=== PATIENT | female | born 1990 | race Caucasian/White ===

== ENCOUNTER 2024-03-18 02:25 | Emergency (ER) | payer MEDICAID, SELFPAY ==
[2024-03-18 02:32] VITALS: BP 147/91; PULSE 80; RESP 16; TEMP 37.1; O2SAT 99; BMI 35.6
[2024-03-18 03:16] LABS: Basophils % 0.4 %; Eosinophils # 0.1 10^3/uL (0.0-0.8); Eosinophils % 1.1 %; Hematocrit 38.8 % (36-47); Lymphocytes # 2.2 10^3/uL (0.8-4.8); Lymphocytes % 26.5 %; Mean Corpuscular HGB Conc 32.7 g/dL (30-55); Mean Corpuscular Hemoglobin 29.6 pg (27-33); Mean Corpuscular Volume 90.4 fl (85-98); Mean Platelet Volume 9.6 fL (7.4-10.4); Monocytes # 0.7 10^3/uL (0.2-0.9); Monocytes % 7.9 %; Neutrophils # 5.37 10^3/uL (1.8-7.7); Neutrophils % 63.9 %; Nucleated Red Blood Cells % 0 %; Platelet Count 191 10^3/cmm (157-399); Red Blood Count 4.29 10^6/uL (3.85-5.65); Red Cell Distribution Width 12.5 % (12.1-15.1); White Blood Count 8.39 10^3/uL (3.29-11.43)
--- NOTE | 2024-03-18 03:18 | USR_ITS ---
PROCEDURE INFORMATION: Exam: US First Trimester, Transabdominal and US , Transvaginal Exam date and time: 03/18/2024 3:38 AM Age: 33 years old Clinical indication: complicated by abdominal or pelvic pain; Generalized abdominal pain; First trimester (<14 weeks 0 days); Gestational age or lmp: 6w 2d by lmp; ; Patient HX: G2-p1-a0-l1. No vaginal bleeding. ; Additional info: Cramping, abdominal pain, approximately 6 weeks LABS AND CLINICAL REPORTS: Choriogonadotropin in serum (Serum HCG): 91516 mIU/mL Last menstrual period start date: 02/03/2024 Gestational age (Established): 6 w 2 d Estimated due date (Established): 11/09/2024 TECHNIQUE: Imaging protocol: Real-time transabdominal obstetrical ultrasound of the maternal pelvis and a first trimester , less than 14 weeks 0 days, with image documentation. Transvaginal imaging was used for better evaluation of the fetus, adnexa, and/or cervix. COMPARISON: No relevant prior studies available. FINDINGS: GESTATION: Gestation: Intrauterine gestation is visualized. pole is visualized. Yolk sac is visualized. Embryonic/ heart rate: 111 bpm Extra-embryonic membranes/Placenta: Unremarkable. No subchorionic bleed. Amniotic/Chorionic fluid: Amniotic and extra-amniotic fluid are normal for gestational age. BIOMETRY: Gestational age (AUA): 6 w 3 d Estimated due date (AUA): 11/08/2024 [place] rump length (CRL): 6.2 mm. EGA (CRL) is 6 w 3 d MATERNAL: Uterus: Uterus measures 4.17 cm x 6.12 cm x 5.46 cm. Cervix: Unremarkable. Endocervical canal is closed. Right ovary/adnexa: Right ovary measures 3.5 cm x 2.3 cm x 2.8 cm. Right ovarian volume is 9 mL. Right ovarian corpus luteal cyst. Left ovary/adnexa: Left ovary measures 2.9 cm x 1.8 cm x 3.4 cm. Left ovarian volume is 9 mL. Intraperitoneal space: No intraperitoneal free fluid. US/US OB <= 14 weeks fetus [id number] IMPRESSION: Live intrauterine is noted with gestational age of 6 weeks and 3 days.
[2024-03-18 03:23] VITALS: BP 129/85; PULSE 97; O2SAT 99
--- NOTE | 2024-03-18 03:25 | ED_ITS ---
HPI - Dizziness 2 General: Chief Complaint: Dizziness Stated Complaint: 6 weeks preg, Light headed, Cramping History of Present Illness: HPI Narrative: 33-year-old female who is approximately 6 weeks who presents emergency room with pelvic cramping and she says cervix pain. She said it suddenly and she felt kind of dizzy. She has already had an ultrasound as she had some left flank pain and they had done the ultrasound to rule out an ectopic . No vaginal bleeding. No vaginal discharge. No fevers. Related Data Previous Rx's Medication Instructions Recorded cephalexin 500 mg capsule 500 mg PO BID 5 days #10 caps 03/18/24 Allergies Allergy/AdvReac Type Severity Reaction Status Date / Time Penicillins Allergy ALGY-Rash Verified 03/18/24 02:36 Review of Systems 2 Narrative: Constitutional symptoms: Negative except as documented in HPI. Skin symptoms: Negative except as documented in HPI. Eye symptoms: Negative except as documented in HPI. ENMT symptoms: Negative except as documented in HPI. Respiratory symptoms: Negative except as documented in HPI. Cardiovascular symptoms: Negative except as documented in HPI. Gastrointestinal symptoms: Negative except as documented in HPI. Genitourinary symptoms: Negative except as documented in HPI. Musculoskeletal symptoms: Negative except as documented in HPI. Neurologic symptoms: Negative except as documented in HPI. Psychiatric symptoms: Negative except as documented in HPI. Endocrine symptoms: Negative except as documented in HPI. [facility] ED 2 Female Reproductive History: Date of last menstrual period: 02/03/24 Physical Exam 2 Narrative: EXAM NARRATIVE: General: Alert, no acute distress. Skin: Warm, dry. Head: Normocephalic, atraumatic. Neck: Supple, trachea midline. Eye: Extraocular movements are intact. Ears, nose, mouth and throat: mucosa moist. Cardiovascular: Regular, Normal peripheral perfusion. Respiratory: Lungs are clear to auscultation, respirations are non-labored, breath sounds are equal, Symmetrical chest wall expansion. Gastrointestinal: Soft, Nontender, Non distended Musculoskeletal: Normal ROM, no deformity. Neurological: Alert and oriented, No focal neurological deficit observed. Psychiatric: Cooperative, appropriate mood & affect. Course 2 Vital Signs: Vital signs: Vital Signs Temperature 98.8 F 03/18/24 02:32 Pulse Rate 78 03/18/24 04:49 Respiratory Rate 16 03/18/24 02:32 Blood Pressure 135/83 03/18/24 04:49 Pulse Oximetry 98 03/18/24 04:38 Oxygen Delivery Me thod Room Air 03/18/24 02:32 MDM - Dizziness Medical Decision Making Lab Review: Laboratory results were reviewed and interpreted by myself the emergency room physician. No leukocytosis. No anemia. No renal failure. hCG is appropriate. Urinalysis is positive for an infection. Ultrasound of the pelvis: Live intrauterine noted with a gestational age of 6 weeks and 3 days. This was reviewed and interpreted by myself the emergency room physician. I also reviewed the radiology report. I reviewed the patient's medical record. Reexamination: Patient remained stable. No increased work of breathing. No altered mental status. No focal motor deficits. Assessment and plan: Urinary tract infection Early -IM Dionin in the emergency room - Discharged home - Discussed plan with patient. Answered any questions. - Evaluation and treatment of this problem were appropriate in the emergency setting. Lab Data 03/18/24 03:08 03/18/24 03:08 Radiology Impressions Ultrasound 03/18/24 03:18 IMPRESSION: Live intrauterine is noted with gestational age of 6 weeks and 3 days. Laboratory Results WBC 8.39 10^3/uL (3.29-11.43) 03/18/24 03:08 RBC 4.29 10^6/uL (3.85-5.65) 03/18/24 03:08 Hgb 12.70 g/dL (11.27-16.99) 03/18/24 03:08 Hct 38.8 % (36-47) 03/18/24 03:08 MCV 90.4 fl (85-98) 03/18/24 03:08 MCH 29.6 pg (27-33) 03/18/24 03:08 MCHC 32.7 g/dL (30-55) 03/18/24 03:08 RDW 12.5 % (12.1-15.1) 03/18/24 03:08 Plt Count 191 10^3/cmm (157-399) 03/18/24 03:08 MPV 9.6 fL (7.4-10.4) 03/18/24 03:08 Neut % (Auto) 63.9 % 03/18/24 03:08 Lymph % (Auto) 26.5 % 03/18/24 03:08 [place] % (Auto) 7.9 % 03/18/24 03:08 Eos % (Auto) 1.1 % 03/18/24 03:08 Baso % (Auto) 0.4 % 03/18/24 03:08 Neut # (Auto) 5.37 10^3/uL (1.8-7.7) 03/18/24 03:08 Lymph # (Auto) 2.2 10^3/uL (0.8-4.8) 03/18/24 03:08 [place] # (Auto) 0.7 10^3/uL (0.2-0.9) 03/18/24 03:08 Eos # (Auto) 0.1 10^3/uL (0.0-0.8) 03/18/24 03:08 Baso # (Auto) 0.0 10^3/uL (0.0-0.1) 03/18/24 03:08 Nucleated RBC % (auto) 0 % 03/18/24 03:08 Nucleated RBCs # 0.0 /100WBC 03/18/24 03:08 Sodium 138 mmol/L (136-145) 03/18/24 03:08 Potassium 4.0 mmol/L (3.5-5.1) 03/18/24 03:08 Chloride 104 mmol/L (98-107) 03/18/24 03:08 Carbon Dioxide 22 mmol/L (22-29) 03/18/24 03:08 Anion Gap 16.0 (5-19) 03/18/24 03:08 BUN 10 mg/dL (6-20) 03/18/24 03:08 Creatinine 0.7 mg/dL (0.5-0.9) 03/18/24 03:08 GFR Calculation 96.4 mL/min (90-130) 03/18/24 03:08 Glucose 91 mg/dL (65-115) 03/18/24 03:08 Calculated Osmolality 285 mOsm/kg (285-295) 03/18/24 03:08 Calcium 8.5 mg/dL (8.5-10.5) 03/18/24 03:08 Total Bilirubin 0.2 mg/dL (0.15-1.2) 03/18/24 03:08 AST 11 U/L (0-32) 03/18/24 03:08 ALT 12 U/L (0-33) 03/18/24 03:08 Alkaline Phosphatase 67 U/L (35-105) 03/18/24 03:08 Total Protein 6.7 g/dL (6.6-8.7) 03/18/24 03:08 Albumin 4.0 g/dL (3.5-5.2) 03/18/24 03:08 Globulin 2.7 g/dL (1.3-4.6) 03/18/24 03:08 Ser , Semi-Qnt 13721.00 mIU/mL 03/18/24 03:08 Urine Color Yellow (Yellow) 03/18/24 03:12 Urine Appearance Cloudy (CLEAR) A 03/18/24 03:12 Urine pH 7.0 (5-7) 03/18/24 03:12 Ur Specific [place] 1.012 (1.005-1.030) 03/18/24 03:12 Urine Protein Negative (Negative) 03/18/24 03:12 Urine Glucose (UA) Negative (Normal) 03/18/24 03:12 Urine Ketones Trace (Negative) 03/18/24 03:12 Urine Blood Negative (Negative) 03/18/24 03:12 Urine Nitrate Negative (Negative) 03/18/24 03:12 Urine Bilirubin Negative (Negative) 03/18/24 03:12 Urine Urobilinogen 1.0 mg/dL (Negative) 03/18/24 03:12 Ur Leukocyte Esterase Trace (Negative) A 03/18/24 03:12 Urine RBC 0-2 /hpf (0-2) 03/18/24 03:12 Urine WBC 6-10 /hpf (0-5) 03/18/24 03:12 Ur Squamous Epith Cells 0-5 /hpf (0-5) 03/18/24 03:12 Amorphous Sediment Not Reportable 03/18/24 03:12 Urine Bacteria Trace /hpf (NONE) 03/18/24 03:12 Hyaline Casts 0.40 /lpf 03/18/24 03:12 All radiology interpretation(s) finalized by discharge Discharge Plan Discharge Patient Disposition: Home Clinical Impression: Urinary tract infection, at early stage Condition: Stable Prescriptions: New cephalexin 500 mg capsule 500 mg PO BID 5 Days Qty: 10 0RF Discharge Orders: Discharge ED (Routine); Ordered 03/18/24 Ordered By: Jocelynn Mckeon Referrals: Amado Armando FNP [Family Provider] - Discharge Diet: Usual diet Discharge Activity: Increase activity as tolerated Patient Instructions: Urinary Tract Infection in (ED) Activity Restrictions/Additional Instructions: Thank you for choosing [facility] for your healthcare needs today. Please realize this is an emergency room and that we are providing you with a medical screening exam and this may not be complete and all inclusive of all the testing and or work up that you may need to determine your ailment or severity of your illness. You have been screened and evaluated and felt safe for discharge. Health conditions do change or evolve sometimes and as such it is important that you follow up with your Primary Doctor to be re checked, 3-5 days is a general good time frame for follow up. You are always welcome to return to the ED for re assessment if your symptoms are worsening or you have new concerns Coding Level of Care Code ED Medical Parasitologist for Tea Ventura
[2024-03-18 03:26] LABS: Bilirubin Urine Negative (Negative); Blood Urine Negative (Negative); Glucose Urine UA Negative (Normal); Ketones Urine Trace (Negative); Leukocyte Esterase Urine Trace (Negative); Nitrate Urine Negative (Negative); Protein Urine Negative (Negative); Specific Gravity, Urine 1.012 (1.005-1.030); Urine Appearance Cloudy (CLEAR); Urine Color Yellow (Yellow)
[2024-03-18 03:28] LABS: Bacteria Urine Trace /hpf; RBC Urine 0-2 /hpf (0-2); Squamous Epithelial Cell Urine 0-5 /hpf (0-5)
[2024-03-18 03:30] VITALS: BP 128/85; PULSE 79; O2SAT 99
[2024-03-18 03:33] LABS: Alanine Aminotransferase 12 U/L (0-33); Alkaline Phosphatase 67 U/L (35-105); Aspartate Amino Transferase 11 U/L (0-32); Blood Urea Nitrogen 10 mg/dL (6-20); Calcium 8.5 mg/dL (8.5-10.5); Carbon Dioxide 22 mmol/L (22-29); Chloride 104 mmol/L (98-107); Creatinine Clr Calc Pharmacy 127.3278; Globulin 2.7 g/dL (1.3-4.6); Glomerular Filtration Rate 96.4 mL/min (90-130); Glucose 91 mg/dL (65-115); Osmolality Calculated 285 mOsm/kg (285-295); Sodium 138 mmol/L (136-145); Total Bilirubin 0.2 mg/dL (0.15-1.2); Total Protein 6.7 g/dL (6.6-8.7)
[2024-03-18] MEDS: cefTRIAXone 1,000 MG in water for injection-sterile 2.1 ML 2.1 MG IM (04:18)
[2024-03-18 04:38] VITALS: BP 148/87; PULSE 76; O2SAT 98
[2024-03-18 04:49] VITALS: BP 135/83; PULSE 78
== END 2024-03-18 04:55 | disposition home or self-care (01) ==
PROVIDERS: Emergency Provider Emergency Medicine; Family Provider Nurse Practitioner Family
DX: O23.41 Unspecified infection of urinary tract in pregnancy, first trimester (principal); N39.0 Urinary tract infection, site not specified; Z3A.01 Less than 8 weeks gestation of pregnancy
CPT/HCPCS: 36415; 76801; 80053; 81001; 84702; 85025; 96372; 99284; J0696

== ENCOUNTER 2024-05-29 20:19 | Emergency (ER) | payer MEDICAID, SELFPAY ==
[2024-05-29 20:24] VITALS: BP 138/95; PULSE 88; RESP 16; TEMP 36.7; O2SAT 97; BMI 36.1
[2024-05-29 22:15] VITALS: BP 148/92; PULSE 92; RESP 16; O2SAT 100
[2024-05-29 22:15] LABS: Basophils % 0.3 %; Eosinophils # 0.1 10^3/uL (0.0-0.8); Eosinophils % 0.9 %; Hematocrit 39.6 % (36-47); Lymphocytes # 2.6 10^3/uL (0.8-4.8); Lymphocytes % 24.1 %; Mean Corpuscular HGB Conc 33.6 g/dL (30-55); Mean Corpuscular Hemoglobin 29.8 pg (27-33); Mean Corpuscular Volume 88.8 fl (85-98); Mean Platelet Volume 9.9 fL (7.4-10.4); Monocytes # 0.7 10^3/uL (0.2-0.9); Neutrophils # 7.11 10^3/uL (1.8-7.7); Neutrophils % 67.2 %; Nucleated Red Blood Cells % 0 %; Platelet Count 236 10^3/cmm (157-399); Red Blood Count 4.46 10^6/uL (3.85-5.65); Red Cell Distribution Width 12.5 % (12.1-15.1); White Blood Count 10.57 10^3/uL (3.29-11.43)
--- NOTE | 2024-05-29 22:15 | ED_ITS ---
Documented by User: BRIANA Cuello 05/29/24 22:46 HPI - 2 General: Chief complaint: OB/Uterine Contractions Stated complaint: 17 weeks preg/cramping Time Seen by Provider: 05/29/24 22:11 History of Present Illness: 33-year-old female comes in today for co mplaints of contractions and right upper quadrant abdominal discomfort. Patient also has some pelvic pressure. Patient's last menstrual cycle was on February 02. Patient is 2 para 1. Patient does have a history of high blood pressure and preeclampsia. Patient does see Dr. Cowan for her LABORATORY DEVELOPMENT TECHNICIAN at [facility]. Patient denies any other chronic medical problems. Patient reports she had some contractions tonight along with some left upper abdominal discomfort. Patient reports contractions and pain is resolved since being in the waiting room. Associated symptoms: Reports abdominal pain Related Data Allergies Allergy/AdvReac Type Severity Reaction Status Date / Time Penicillins Allergy ALGY-Rash Verified 03/18/24 02:36 Review of Systems 2 General: Reports: 10 or more systems reviewed and unremarkable except in HPI and below GI: Reports: abdominal pain Physical Exam 2 Const: COMMON NORMALS: alert HENMT: COMMON NORMALS: normocephalic HEAD & SCALP: normocephalic Neck/C-Spine: COMMON NORMALS: full ROM Chest: COMMONS NORMALS: normal inspection of the chest Resp: COMMON NORMALS: normal respiratory effort Cardio: COMMON NORMALS: regular rhythm RATE: tachycardic RHYTHM: regular rhythm GI: COMMON NORMALS: Soft to palpation PALPATION: Yes Soft to palpation : COMMON NORMALS: Yes no CVA tenderness BLADDER/KIDNEY EXAM: Yes no CVA tenderness Back/Pelvis: COMMON NORMALS: no CVA tenderness Extremity: COMMON NORMALS: normal to inspection Neuro: SENSORIUM/ORIENTATION: Yes alert Skin: COMMON NORMALS: turgor normal GENERAL SKIN EXAM: turgor normal Course 2 Vital Signs: Vital signs: Vital Signs Temperature 98.1 F 05/29/24 20:24 Pulse Rate 89 05/29/24 22:50 Respiratory Rate 16 05/29/24 22:15 Blood Pressure 148/91 05/29/24 22:50 Pulse Oximetry 98 05/29/24 22:50 Oxygen Delivery Me thod Room Air 05/29/24 22:15 MDM - OB/Uterine Contractions Medical Decision Making 33-year-old female comes in today with complaints of some contractions and left upper abdominal pain. Patient reports pain started this evening but has resolved since arrival to the ER. On exam patient appears nontoxic. I requested Dr. Gonzalez who graciously performed a bedside ultrasound and noted a good heart movement with rate in the 140s, and a BPD age estimate of age at 17 weeks and 6 days. Differential diagnosis includes not limited to gastritis, Concordia Rodriguez contractions, round ligament pain, urinary tract infections. CBC CMP was unremarkable. Urinalysis was a poor catch with lots of skin cells. Reviewed the exam with patient with recommendation for follow-up with LABORATORY DEVELOPMENT TECHNICIAN's office in the morning for reevaluation of elevated blood pressure and consideration of treatment. Patient reports understanding agreed to plan. Lab Data 05/29/24 22:05 05/29/24 22: Laboratory Results WBC 10.57 10^3/uL (3.29-11.43) 05/29/24 22: RBC 4.46 10^6/uL (3.85-5.65) 05/29/24 22:05 Hgb 13.30 g/dL (11.27-16.99) 05/29/24 22:05 Hct 39.6 % (36-47) 05/29/24: MCV 88.8 fl (85-98) 05/29/24 22:05 MCH 29.8 pg (27-33) 05/29/24 22:05 MCHC 33.6 g/dL (30-55) 05/29/24 22:05 RDW 12.5 % (12.1-15.1) 05/29/24 22:05 Plt Count 236 10^3/cmm (157-399) 05/29/24 22:05 MPV 9.9 fL (7.4-10.4) 05/29/24 22:05 Neut % (Auto) 67.2 % 05/29/24: Lymph % (Auto) 24.1 % 05/29/24 22:05 [place] % (Auto) 7.0 % 05/29/24 22: Eos % (Auto) 0.9 % 05/29/24 22:05 Baso % (Auto) 0.3 % 05/29/24:05 Neut # (Auto) 7.11 10^3/uL (1.8-7.7) 05/29/24 22:05 Lymph # (Auto) 2.6 10^3/uL (0.8-4.8) 05/29/24 22:05 [place] # (Auto) 0.7 10^3/uL (0.2-0.9) 05/29/24 22:05 Eos # (Auto) 0.1 10^3/uL (0.0-0.8) 05/29/24 22:05 Baso # (Auto) 0.0 10^3/uL (0.0-0.1) 05/29/24 22:05 Nucleated RBC % (auto) 0 % 05/29/24 22:05 Nucleated RBCs # 0.0 /100WBC 05/29/24 22:05 Sodium 135 mmol/L (136-145) L 05/29/24 22:05 Potassium 3.8 mmol/L (3.5-5.1) 05/29/24 22:05 Chloride 101 mmol/L (98-107) 05/29/24 22:05 Carbon Dioxide 24 mmol/L (22-29) 05/29/24 22:05 Anion Gap 13.8 (5-19) 05/29/24 22:05 BUN 10 mg/dL (6-20) 05/29/24 22:05 Creatinine 0.6 mg/dL (0.5-0.9) 05/29/24 22:05 GFR Calculation 115.1 mL/min (90-130) 05/29/24 22:05 Glucose 88 mg/dL (65-115) 05/29/24 22:05 Calculated Osmolality 278 mOsm/kg (285-295) L 05/29/24 22:05 Calcium 9.1 mg/dL (8.5-10.5) 05/29/24 22:05 Total Bilirubin 0.2 mg/dL (0.15-1.2) 05/29/24 22:05 AST 12 U/L (0-32) 05/29/24 22:05 ALT 11 U/L (0-33) 05/29/24 22:05 Alkaline Phosphatase 69 U/L (35-105) 05/29/24 22:05 Total Protein 7.3 g/dL (6.6-8.7) 05/29/24 22:05 Albumin 4.1 g/dL (3.5-5.2) 05/29/24 22:05 Globulin 3.2 g/dL (1.3-4.6) 05/29/24 22:05 Lipase 29 U/L (13-60) 05/29/24 22:05 Urine Color Yellow (Yellow) 05/29/24 22:00 Urine Appearance Cloudy (CLEAR) A 05/29/24 22:00 Urine pH 5.5 (5-7) 05/29/24 22:00 Ur Specific [place] 1.032 (1.005-1.030) H 05/29/24 22:00 Urine Protein Trace (Negative) A 05/29/24 22:00 Urine Glucose (UA) Negative (Normal) 05/29/24 22:00 Urine Ketones Trace (Negative) 05/29/24 22:00 Urine Blood Negative (Negative) 05/29/24 22:00 Urine Nitrate Negative (Negative) 05/29/24 22:00 Urine Bilirubin Negative (Negative) 05/29/24 22:00 Urine Urobilinogen 1.0 mg/dL (Negative) 05/29/24 22:00 Ur Leukocyte Esterase Negative (Negative) 05/29/24 22:00 Urine RBC 0-4 /hpf (0-2) H 05/29/24 22:00 Urine WBC 10-15 /hpf (0-5) H 05/29/24 22:00 Ur Squamous Epith Cells 25-40 /hpf (0-5) H 05/29/24 22:00 Calcium Oxalate Crystal 25-40 /hpf H 05/29/24 22:00 Amorphous Sediment Not Reportable 05/29/24 22:00 Urine Bacteria 2+ /hpf (NONE) H 05/29/24 22:00 Urine Mucus 2+ /hpf 05/29/24 22:00 No radiology studies performed this visit Discharge Plan Discharge Patient Disposition: Home Clinical Impression: Abdominal pain during Qualifiers: Trimester: second trimester Qualified Code(s): O26.892 - Other specified related conditions, second trimester Condition: Stable Discharge Orders: Discharge ED (Routine); Ordered 05/29/24 Ordered By: Long Ledezma Referrals: Paulo Pham MD [Primary Care Provider] - Discharge Diet: Usual diet Discharge Activity: Increase activity as tolerated Patient Instructions: Abdominal Pain (ED) Activity Restrictions/Additional Instructions: Drink plenty of water and fluid. Use acetaminophen to help with pain. Follow- up with LABORATORY DEVELOPMENT TECHNICIAN's office in the morning. Return to ER for worsening symptoms such as inability to hold fluids down, high fever greater than 101, vaginal bleeding or vaginal leakage of fluids. Coding Level of Care Code ED Cold Working Supervisor for Chg Fwd Documented by User: Joey Gonzalez DO 05/30/24 02:16 HPI - 2 General: Chief complaint: OB/Uterine Contractions Stated complaint: 17 weeks preg/cramping Time Seen by Provider: 05/29/24 22:11 Related Data Allergies Allergy/AdvReac Type Severity Reaction Status Date / Time Penicillins Allergy ALGY-Rash Verified 03/18/24 02:36 Course 2 Vital Signs: Vital signs: Vital Signs Temperature 98.1 F 05/29/24 20:24 Pulse Rate 89 05/29/24 22:50 Respiratory Rate 16 05/29/24 22:15 Blood Pressure 148/91 05/29/24 22:50 Pulse Oximetry 98 05/29/24 22:50 Oxygen Delivery Me thod Room Air 05/29/24 22:15 MDM - OB/Uterine Contractions Medical Decision Making 33-year-old female comes in today with complaints of some contractions and left upper abdominal pain. Patient reports pain started this evening but has resolved since arrival to the ER. On exam patient appears nontoxic. I requested Dr. Gonzalez who graciously performed a bedside ultrasound and noted a good heart movement with rate in the 140s, and a BPD age estimate of age at 17 weeks and 6 days. Differential diagnosis includes not limited to gastritis, Concordia Rodriguez contractions, round ligament pain, urinary tract infections. CBC CMP was unremarkable. Urinalysis was a poor catch with lots of skin cells. Reviewed the exam with patient with recommendation for follow-up with LABORATORY DEVELOPMENT TECHNICIAN's office in the morning for reevaluation of elevated blood pressure and consideration of treatment. Patient reports understanding agreed to plan. This patient was originally seen by BRIANA Guardado.? I agree with his history, evaluation, and treatment. Lab Data 05/29/24 22:05 05/29/24 22:05 Laboratory Results WBC 10.57 10^3/uL (3.29-11.43) 05/29/24 22:05 RBC 4.46 10^6/uL (3.85-5.65) 05/29/24 22:05 Hgb 13.30 g/dL (11.27-16.99) 05/29/24 22:05 Hct 39.6 % (36-47) 05/29/24 22:05 MCV 88.8 fl (85-98) 05/29/24 22:05 MCH 29.8 pg (27-33) 05/29/24 22:05 MCHC 33.6 g/dL (30-55) 05/29/24 22:05 RDW 12.5 % (12.1-15.1) 05/29/24 22:05 Plt Count 236 10^3/cmm (157-399) 05/29/24 22:05 MPV 9.9 fL (7.4-10.4) 05/29/24 22:05 Neut % (Auto) 67.2 % 05/29/24 22:05 Lymph % (Auto) 24.1 % 05/29/24 22:05 [place] % (Auto) 7.0 % 05/29/24 22:05 Eos % (Auto) 0.9 % 05/29/24 22:05 Baso % (Auto) 0.3 % 05/29/24 22:05 Neut # (Auto) 7.11 10^3/uL (1.8-7.7) 05/29/24 22:05 Lymph # (Auto) 2.6 10^3/uL (0.8-4.8) 05/29/24 22:05 [place] # (Auto) 0.7 10^3/uL (0.2-0.9) 05/29/24 22:05 Eos # (Auto) 0.1 10^3/uL (0.0-0.8) 05/29/24 22:05 Baso # (Auto) 0.0 10^3/uL (0.0-0.1) 05/29/24 22:05 Nucleated RBC % (auto) 0 % 05/29/24 22:05 Nucleated RBCs # 0.0 /100WBC 05/29/24 22:05 Sodium 135 mmol/L (136-145) L 05/29/24 22:05 Potassium 3.8 mmol/L (3.5-5.1) 05/29/24 22:05 Chloride 101 mmol/L (98-107) 05/29/24 22:05 Carbon Dioxide 24 mmol/L (22-29) 05/29/24 22:05 Anion Gap 13.8 (5-19) 05/29/24 22:05 BUN 10 mg/dL (6-20) 05/29/24 22:05 Creatinine 0.6 mg/dL (0.5-0.9) 05/29/24 22:05 GFR Calculation 115.1 mL/min (90-130) 05/29/24 22:05 Glucose 88 mg/dL (65-115) 05/29/24 22:05 Calculated Osmolality 278 mOsm/kg (285-295) L 05/29/24 22:05 Calcium 9.1 mg/dL (8.5-10.5) 05/29/24 22:05 Total Bilirubin 0.2 mg/dL (0.15-1.2) 05/29/24 22:05 AST 12 U/L (0-32) 05/29/24 22:05 ALT 11 U/L (0-33) 05/29/24 22:05 Alkaline Phosphatase 69 U/L (35-105) 05/29/24 22:05 Total Protein 7.3 g/dL (6.6-8.7) 05/29/24 22:05 Albumin 4.1 g/dL (3.5-5.2) 05/29/24 22:05 Globulin 3.2 g/dL (1.3-4.6) 05/29/24 22:05 Lipase 29 U/L (13-60) 05/29/24 22:05 Urine Color Yellow (Yellow) 05/29/24 22:00 Urine Appearance Cloudy (CLEAR) A 05/29/24 22:00 Urine pH 5.5 (5-7) 05/29/24 22:00 Ur Specific [place] 1.032 (1.005-1.030) H 05/29/24 22:00 Urine Protein Trace (Negative) A 05/29/24 22:00 Urine Glucose (UA) Negative (Normal) 05/29/24 22:00 Urine Ketones Trace (Negative) 05/29/24 22:00 Urine Blood Negative (Negative) 05/29/24 22:00 Urine Nitrate Negative (Negative) 05/29/24 22:00 Urine Bilirubin Negative (Negative) 05/29/24 22:00 Urine Urobilinogen 1.0 mg/dL (Negative) 05/29/24 22:00 Ur Leukocyte Esterase Negative (Negative) 05/29/24 22:00 Urine RBC 0-4 /hpf (0-2) H 05/29/24 22:00 Urine WBC 10-15 /hpf (0-5) H 05/29/24 22:00 Ur Squamous Epith Cells 25-40 /hpf (0-5) H 05/29/24 22:00 Calcium Oxalate Crystal 25-40 /hpf H 05/29/24 22:00 Amorphous Sediment Not Reportable 05/29/24 22:00 Urine Bacteria 2+ /hpf (NONE) H 05/29/24 22:00 Urine Mucus 2+ /hpf 05/29/24 22:00 Discharge Plan Discharge Patient Disposition: Home Clinical Impression: Abdominal pain during Qualifiers: Trimester: second trimester Qualified Code(s): O26.892 - Other specified related conditions, second trimester Condition: Stable Discharge Orders: Discharge ED (Routine); Ordered 05/29/24 Ordered By: Long Ledezma Referrals: Paulo Pham MD [Primary Care Provider] - Discharge Diet: Usual diet Discharge Activity: Increase activity as tolerated Patient Instructions: Abdominal Pain (ED) Activity Restrictions/Additional Instructions: Drink plenty of water and fluid. Use acetaminophen to help with pain. Follow- up with LABORATORY DEVELOPMENT TECHNICIAN's office in the morning. Return to ER for worsening symptoms such as inability to hold fluids down, high fever greater than 101, vaginal bleeding or vaginal leakage of fluids. Coding Level of Care Code ED Cold Working Supervisor for Tea Ventura
[2024-05-29 22:24] LABS: Bilirubin Urine Negative (Negative); Blood Urine Negative (Negative); Glucose Urine UA Negative (Normal); Ketones Urine Trace (Negative); Leukocyte Esterase Urine Negative (Negative); Nitrate Urine Negative (Negative); Protein Urine Trace (Negative); Urine Appearance Cloudy (CLEAR); Urine Color Yellow (Yellow); pH Urine 5.5 (5-7)
[2024-05-29 22:37] LABS: Alanine Aminotransferase 11 U/L (0-33); Albumin Level 4.1 g/dL (3.5-5.2); Alkaline Phosphatase 69 U/L (35-105); Anion Gap 13.8 (5-19); Aspartate Amino Transferase 12 U/L (0-32); Blood Urea Nitrogen 10 mg/dL (6-20); Calcium 9.1 mg/dL (8.5-10.5); Carbon Dioxide 24 mmol/L (22-29); Chloride 101 mmol/L (98-107); Creatinine Clr Calc Pharmacy 150.6503; Globulin 3.2 g/dL (1.3-4.6); Glomerular Filtration Rate 115.1 mL/min (90-130); Glucose 88 mg/dL (65-115); Lipase 29 U/L (13-60); Osmolality Calculated 278 mOsm/kg (285-295); Potassium 3.8 mmol/L (3.5-5.1); Sodium 135 mmol/L (136-145); Total Bilirubin 0.2 mg/dL (0.15-1.2); Total Protein 7.3 g/dL (6.6-8.7)
[2024-05-29 22:38] LABS: Add Urine Culture? No; Add Urine Microscopic? YES; Bacteria Urine 2+ /hpf; Calcium Oxalate Crystals Urine 25-40 /hpf; Mucus Urine 2+ /hpf; RBC Urine 0-4 /hpf (0-2); Specific Gravity, Urine 1.032 (1.005-1.030); Squamous Epithelial Cell Urine 25-40 /hpf (0-5)
[2024-05-29 22:50] VITALS: BP 148/91; PULSE 89; O2SAT 98
== END 2024-05-29 22:51 | disposition home or self-care (01) ==
PROVIDERS: Emergency Medicine; Emergency Provider Nurse Practitioner Family; PCP Family Medicine
DX: O26.892 Other specified pregnancy related conditions, second trimester (principal); R10.11 Right upper quadrant pain; Z3A.17 17 weeks gestation of pregnancy
CPT/HCPCS: 36415; 80053; 81001; 83690; 85025; 99283

== ENCOUNTER 2024-07-15 10:54 | Outpatient (CLI) | payer MEDICAID, SELFPAY ==
[2024-07-15 10:50] VITALS: BMI 37.2
[2024-07-15 11:29] VITALS: BP 142/76; PULSE 88
[2024-07-15 11:44] VITALS: BP 134/73; PULSE 89
[2024-07-15 11:44] LABS: Bilirubin Urine Negative (Negative); Blood Urine Negative (Negative); Glucose Urine UA Negative (Normal); Ketones Urine Trace (Negative); Leukocyte Esterase Urine Trace (Negative); Nitrate Urine Negative (Negative); Protein Urine Negative (Negative); Specific Gravity, Urine 1.013 (1.005-1.030); Urine Appearance Clear (CLEAR); Urine Color Yellow (Yellow); Urobilinogen Urine 0.2 mg/dL (Negative)
[2024-07-15 11:46] LABS: Bacteria Urine 2+ /hpf; Hyaline Casts Urine 0-4 /lpf; RBC Urine 0-2 /hpf (0-2); WBC Urine 0-5 /hpf (0-5)
[2024-07-15 11:58] LABS: Basophils % 0.1 %; Eosinophils % 0.5 %; Hematocrit 34.9 % (36-47); Lymphocytes # 1.5 10^3/uL (0.8-4.8); Lymphocytes % 18.5 %; Mean Corpuscular HGB Conc 33.8 g/dL (30-55); Mean Corpuscular Hemoglobin 30.3 pg (27-33); Mean Corpuscular Volume 89.5 fl (85-98); Monocytes # 0.4 10^3/uL (0.2-0.9); Monocytes % 5.3 %; Neutrophils # 6.17 10^3/uL (1.8-7.7); Nucleated Red Blood Cells % 0 %; Platelet Count 204 10^3/cmm (157-399); Red Cell Distribution Width 12.2 % (12.1-15.1); White Blood Count 8.23 10^3/uL (3.29-11.43)
[2024-07-15 11:59] VITALS: BP 136/72; PULSE 92
[2024-07-15 12:00] LABS: Urine Creatinine 74 mg/dL (28-217); Urine Protein Random 8 mg/dL
[2024-07-15 12:14] VITALS: BP 143/75; PULSE 91
[2024-07-15 12:19] LABS: UPRO/UCREAT Ratio 0.11 mg/mg CR
[2024-07-15 12:21] LABS: Alanine Aminotransferase 7 U/L (0-33); Albumin Level 3.4 g/dL (3.5-5.2); Alkaline Phosphatase 75 U/L (35-105); Anion Gap 15.8 (5-19); Aspartate Amino Transferase 9 U/L (0-32); Blood Urea Nitrogen 5 mg/dL (6-20); Calcium 9.1 mg/dL (8.5-10.5); Carbon Dioxide 23 mmol/L (22-29); Chloride 100 mmol/L (98-107); Creatinine Clr Calc Pharmacy 182.3851; Globulin 3.2 g/dL (1.3-4.6); Glomerular Filtration Rate 142.1 mL/min (90-130); Glucose 109 mg/dL (65-115); Osmolality Calculated 278 mOsm/kg (285-295); Potassium 3.8 mmol/L (3.5-5.1); Sodium 135 mmol/L (136-145); Total Bilirubin 0.2 mg/dL (0.15-1.2); Total Protein 6.6 g/dL (6.6-8.7); Uric Acid 3.6 mg/dL (2.4-5.7)
[2024-07-15 12:29] VITALS: BP 135/73; PULSE 90
[2024-07-15 12:43] VITALS: BP 135/73; PULSE 90; O2SAT 98
== END 2024-07-15 12:43 | disposition home or self-care (01) ==
LOC: OPOB 10:54 → OBGYN 10:55
PROVIDERS: PCP Family Medicine; Visit Provider Family Medicine
DX: O26.899 Other specified pregnancy related conditions, unspecified trimester (principal); Z3A.00 Weeks of gestation of pregnancy not specified
CPT/HCPCS: 80053; 81001; 82570; 84156; 84550; 85025; 99211

== ENCOUNTER 2024-07-18 19:12 | Outpatient (CLI) | payer MEDICAID, SELFPAY ==
[2024-07-18] VITALS (8 sets, daily range): BP systolic 121–144; BP diastolic 60–84; PULSE 78–88; RESP 16; TEMP 35.7; O2SAT 99–100; BMI 37.5
[2024-07-18 20:13] LABS: Bilirubin Urine Negative (Negative); Blood Urine 2+ (Negative); Glucose Urine UA Negative (Normal); Ketones Urine Trace (Negative); Leukocyte Esterase Urine 1+ (Negative); Nitrate Urine Negative (Negative); Protein Urine Negative (Negative); Urine Appearance Clear (CLEAR); Urine Color Yellow (Yellow); pH Urine 5.5 (5-7)
[2024-07-18 20:17] LABS: Bacteria Urine 2+ /hpf; Hyaline Casts Urine 0.81 /lpf
== END 2024-07-18 21:04 | disposition home or self-care (01) ==
LOC: OPOB 19:17 → OBGYN 19:18
PROVIDERS: PCP Family Medicine; Visit Provider Family Medicine
DX: O26.899 Other specified pregnancy related conditions, unspecified trimester (principal); Z3A.00 Weeks of gestation of pregnancy not specified; R10.9 Unspecified abdominal pain
CPT/HCPCS: 81001; 87086; 99211

== ENCOUNTER 2024-07-25 08:45 | Outpatient (CLI) | payer MEDICAID, SELFPAY ==
[2024-07-25] VITALS (11 sets, daily range): BP systolic 118–143; BP diastolic 69–87; PULSE 86–93; BMI 38.0
[2024-07-25 10:21] LABS: Bilirubin Urine Negative (Negative); Blood Urine Negative (Negative); Glucose Urine UA Negative (Normal); Ketones Urine Negative (Negative); Leukocyte Esterase Urine 1+ (Negative); Nitrate Urine Negative (Negative); Protein Urine Negative (Negative); Urine Appearance Clear (CLEAR); Urine Color Yellow (Yellow); Urobilinogen Urine 0.2 mg/dL (Negative); pH Urine 6.5 (5-7)
[2024-07-25 10:26] LABS: Add Urine Microscopic? YES; Bacteria Urine 1+ /hpf; RBC Urine 0-2 /hpf (0-2); WBC Urine 0-5 /hpf (0-5)
--- NOTE | 2024-07-25 11:19 | US_ITS ---
WS: [id number] Complete ABDOMINAL ULTRASOUND HISTORY: pain, patient is . COMPARISON: None available. Liver: 18.1 cm in length. Liver is measuring slightly enlarged. Mild hepatic steatosis. No bile duct dilatation. Portal Vein: Normal hepatopetal flow with monophasic waveform. Gallbladder: Normally distended gallbladder with no stones or wall thickening. CBD: 0.3 cm Pancreas: Obscured. Right kidney: 11.4 cm x 5.9 x 5.8 cm. Cortex:1.2 cm. Normal size kidney. There is mild hydronephrosis. Proximal ureter is also slightly dilated. No renal atrophy. Left kidney: 11.8 cm x 5.4 cm x 5.2 cm. Cortex: 1.3 cm. Normal size and echogenicity. No hydronephrosis or mass. Spleen: 11.4 cm. Normal size and echogenicity. Aorta and IVC: Unremarkable abdominal aorta and IVC. US/US abdomen complete* [id number] Impression: 1. Mild RIGHT hydronephrosis. Hydronephrosis is probably due to the gravid sta te. 2. Negative gallbladder. 3. Mild hepatic steatosis and hepatomegaly.
== END 2024-07-25 12:30 | disposition home or self-care (01) ==
LOC: OPOB 08:48 → OBGYN 08:49
PROVIDERS: PCP Family Medicine; Visit Provider Family Medicine
DX: O26.899 Other specified pregnancy related conditions, unspecified trimester (principal); Z3A.00 Weeks of gestation of pregnancy not specified; R52 Pain, unspecified
CPT/HCPCS: 76700; 81001; 99211

== ENCOUNTER 2024-08-17 20:17 | Outpatient (CLI) | payer MEDICAID, SELFPAY ==
[2024-08-17] VITALS (8 sets, daily range): BP systolic 136–153; BP diastolic 79–87; PULSE 92–96; BMI 38.4
[2024-08-17 21:19] LABS: Basophils % 0.3 %; Bilirubin Urine Negative (Negative); Blood Urine Negative (Negative); Eosinophils # 0.1 10^3/uL (0.0-0.8); Eosinophils % 0.8 %; Glucose Urine UA Negative (Normal); Ketones Urine 2+ (Negative); Leukocyte Esterase Urine Trace (Negative); Lymphocytes # 2.1 10^3/uL (0.8-4.8); Lymphocytes % 18.8 %; Mean Corpuscular HGB Conc 31.9 g/dL (30-55); Mean Corpuscular Hemoglobin 29.8 pg (27-33); Mean Corpuscular Volume 93.3 fl (85-98); Mean Platelet Volume 10.3 fL (7.4-10.4); Monocytes # 0.7 10^3/uL (0.2-0.9); Monocytes % 6.2 %; Neutrophils # 8.36 10^3/uL (1.8-7.7); Neutrophils % 73.5 %; Nitrate Urine Positive (Negative); Nucleated Red Blood Cells % 0 %; Platelet Count 227 10^3/cmm (157-399); Positive C 1; Protein Urine Negative (Negative); Red Blood Count 3.86 10^6/uL (3.85-5.65); Red Cell Distribution Width 12.5 % (12.1-15.1); Specific Gravity, Urine 1.017 (1.005-1.030); Urine Appearance Cloudy (CLEAR); Urine Color Yellow (Yellow); Urobilinogen Urine 0.2 mg/dL (Negative); White Blood Count 11.37 10^3/uL (3.29-11.43)
[2024-08-17 21:24] LABS: Add Urine Microscopic? YES; Bacteria Urine 2+ /hpf; Hyaline Casts Urine 0-4 /lpf; RBC Urine 0-2 /hpf (0-2)
[2024-08-17 21:35] LABS: Albumin Level 3.4 g/dL (3.5-5.2); Alkaline Phosphatase 83 U/L (35-105); Anion Gap 18.4 (5-19); Aspartate Amino Transferase 13 U/L (0-32); Blood Urea Nitrogen 7 mg/dL (6-20); Carbon Dioxide 20 mmol/L (22-29); Chloride 101 mmol/L (98-107); Creatinine Clr Calc Pharmacy 154.6613; Glomerular Filtration Rate 115.1 mL/min (90-130); Glucose 85 mg/dL (65-115); Osmolality Calculated 279 mOsm/kg (285-295); Potassium 3.4 mmol/L (3.5-5.1); Sodium 136 mmol/L (136-145); Total Bilirubin 0.2 mg/dL (0.15-1.2); Total Protein 6.4 g/dL (6.6-8.7)
[2024-08-17 21:42] LABS: Add Urine Culture? Yes; Urine Creatinine 96 mg/dL (28-217); Urine Protein Random 11 mg/dL
[2024-08-17 21:44] LABS: UPRO/UCREAT Ratio 0.11 mg/mg CR
[2024-08-17] MEDS: labetalol 200 mg Tablet 100 MG PO (22:24)
[2024-08-17 22:25] LABS: Alanine Aminotransferase 12 U/L (0-33)
== END 2024-08-17 22:28 | disposition home or self-care (01) ==
LOC: OPOB 20:20 → OBGYN 20:21
PROVIDERS: PCP Family Medicine; Visit Provider Family Medicine
DX: O16.9 Unspecified maternal hypertension, unspecified trimester (principal); Z3A.00 Weeks of gestation of pregnancy not specified
CPT/HCPCS: 36415; 59025; 80053; 81001; 82570; 84156; 84550; 85025; 87086; 99211

== ENCOUNTER 2024-08-25 12:18 | Outpatient (CLI) | payer MEDICAID, SELFPAY ==
[2024-08-25 12:18] VITALS: RESP 17; BMI 38.6
[2024-08-25 12:32] VITALS: BP 127/77; PULSE 100
[2024-08-25 12:52] VITALS: BP 126/74; PULSE 96
[2024-08-25 13:12] LABS: Bilirubin Urine Negative (Negative); Blood Urine Non-haemolysed trace (Negative); Glucose Urine UA Negative (Normal); Ketones Urine Trace (Negative); Leukocyte Esterase Urine 1+ (Negative); Nitrate Urine Negative (Negative); Protein Urine Trace (Negative); Specific Gravity, Urine 1.023 (1.005-1.030); Urine Appearance Clear (CLEAR); Urine Color Yellow (Yellow); pH Urine 7.5 (5-7)
[2024-08-25 13:17] LABS: Bacteria Urine 3+ /hpf; Hyaline Casts Urine 0.81 /lpf; WBC Urine 21-50 /hpf (0-5)
[2024-08-25 13:23] LABS: Add Urine Culture? Yes
--- NOTE | 2024-08-25 13:35 | PC.NURSE ---
THIS BAD CREDIT COLLECTOR GOT UA RESULTS TO DR. SHAH AND ORDERS TO CALL IN SCRIPT FOR MACROBID 100MG BID FOR 5 DAYS. THIS BAD CREDIT COLLECTOR CALLED [facility] AND ASKED HER WHICH PHARMACY AND SHE TOLD ME [facility]. THIS BAD CREDIT COLLECTOR TRIED TO CALL IN SCRIPT BUT THE PHARMACY WAS CLOSED UNTIL 2PM. THIS BAD CREDIT COLLECTOR WILL CALL THEM BACK AT 2.
--- NOTE | 2024-08-25 14:14 | PC.NURSE ---
1412 THIS JUNIOR AUTOMATION ENGINEER CALLED IN SCRIPT FOR MACROBID 100MG BID FOR 5 DAYS TO [facility]ARINA AT [facility] HERE IN [place].
== END 2024-08-25 13:05 | disposition home or self-care (01) ==
LOC: OPOB 12:20 → OBGYN 12:57
PROVIDERS: PCP Family Medicine; Visit Provider Family Medicine
DX: O26.899 Other specified pregnancy related conditions, unspecified trimester (principal); Z3A.00 Weeks of gestation of pregnancy not specified; N89.8 Other specified noninflammatory disorders of vagina
CPT/HCPCS: 59025; 81001; 83986; 87086; 99211

== ENCOUNTER 2024-09-16 13:25 | Outpatient (CLI) | payer MEDICAID, SELFPAY ==
[2024-09-16] VITALS (8 sets, daily range): BP systolic 124–139; BP diastolic 65–81; PULSE 92–101; RESP 18; TEMP 35.6; BMI 39.3
--- NOTE | 2024-09-16 13:41 | USR_ITS ---
PROCEDURE INFORMATION: Exam: US Biophysical Profile Without Non-Stress Test Exam date and time: 09/16/2024 2:35 PM Age: 33 years old Clinical indication: Condition or disease; Other: Chronic hypertension; TECHNIQUE: Imaging protocol: US biophysical profile without non-stress testing. COMPARISON: [place] [id number] 08/18/2024 11:45 AM FINDINGS: heart rate: heart rate is 155 bpm. presentation and position: Cephalic presentation. Placenta: Anterior placenta without obvious previa. BIOPHYSICAL PROFILE: breathing (BPP): 2 out of 2. gross body movement (BPP): 2 out of 2. tone (BPP): 2 out of 2. Amniotic fluid (BPP): 2 out of 2. ARMEN is 12.15. MATERNAL ANATOMY: Cervix: The maternal cervix is mostly obscured by shadowing. US/US OB BPP wo NST [id number] IMPRESSION: 1. Normal biophysical profile score of 8/8. 2. Additional details as above.
== END 2024-09-16 15:00 | disposition home or self-care (01) ==
LOC: OPOB 13:28 → OBGYN 13:29
PROVIDERS: PCP Family Medicine; Visit Provider Family Medicine
DX: O16.9 Unspecified maternal hypertension, unspecified trimester (principal); Z3A.00 Weeks of gestation of pregnancy not specified
CPT/HCPCS: 59025; 76819; 99211

== ENCOUNTER 2024-09-22 09:34 | Outpatient (CLI) | payer MEDICAID, SELFPAY ==
[2024-09-22] VITALS (7 sets, daily range): BP systolic 129–135; BP diastolic 73–78; PULSE 72–107; RESP 17; TEMP 36.1; BMI 39.8
[2024-09-22 10:08] LABS: Bilirubin Urine Negative (Negative); Blood Urine Negative (Negative); Glucose Urine UA Negative (Normal); Ketones Urine Negative (Negative); Leukocyte Esterase Urine Negative (Negative); Nitrate Urine Negative (Negative); Protein Urine Negative (Negative); Specific Gravity, Urine 1.013 (1.005-1.030); Urine Appearance Cloudy (CLEAR); Urine Color Yellow (Yellow); Urobilinogen Urine 0.2 mg/dL (Negative); pH Urine 7.5 (5-7)
--- NOTE | 2024-09-22 10:12 | US_ITS ---
WS: [id number] BIOPHYSICAL PROFILE AMNIOTIC FLUID HISTORY: hypertension, pain COMPARISON: 09/16/2024 position: Vertex. Cardiac activity: 141 bpm. Cervix: Obscured by the head. Placenta: Anterior, no previa or abruption. Grade 1. Placenta grade: 2 Parameters are as follows: Breathin Movement: 2 Tone: 2 Fluid volume: 2 Normal amniotic fluid. Single largest vertical pocket 3.6 cm. US/US OB BPP wo NST [id number] IMPRESSION: 1. Biophysical profile score: 8/8. 2. Normal amniotic fluid. 3. Normal cardiac activity.
[2024-09-22 10:43] LABS: UA Manual Slide Review YES; UA Slide Review UA Slide Review Perf
[2024-09-22 10:44] LABS: Add Urine Culture? No; Amorphous Sediment Urine TRACE /hpf; Bacteria Urine TRACE /hpf; Hyaline Casts Urine 0-4 /lpf; Mucus Urine TRACE /hpf; RBC Urine 0-4 /hpf (0-2); Squamous Epithelial Cell Urine 0-4 /hpf (0-5); WBC Urine 0-4 /hpf (0-5)
== END 2024-09-22 11:40 | disposition home or self-care (01) ==
LOC: OPOB 09:40 → OBGYN 09:43
PROVIDERS: PCP Family Medicine; Visit Provider Family Medicine
DX: Z46.89 Encounter for fitting and adjustment of other specified devices (principal); M54.9 Dorsalgia, unspecified
CPT/HCPCS: 59025; 76819; 81001; 99211

== ENCOUNTER 2024-09-25 22:21 | Outpatient (CLI) | payer MEDICAID, SELFPAY ==
[2024-09-25 22:15] VITALS: BMI 39.6
[2024-09-25 22:28] VITALS: BP 142/85; PULSE 98
[2024-09-25 22:33] VITALS: RESP 16
[2024-09-25 22:44] VITALS: BP 138/86; PULSE 96
[2024-09-25 22:58] VITALS: BP 131/84; PULSE 95
== END 2024-09-25 23:08 | disposition home or self-care (01) ==
LOC: OPOB 22:22 → OBGYN 22:23
PROVIDERS: PCP Family Medicine; Visit Provider Obstetrics & Gynecology
DX: O36.8190 Decreased fetal movements, unspecified trimester, not applicable or unspecified (principal); Z3A.00 Weeks of gestation of pregnancy not specified
CPT/HCPCS: 59025; 99211

== ENCOUNTER 2025-02-01 14:05 | Outpatient (CLI) | payer MEDICAID, SELFPAY ==
--- NOTE | 2025-02-01 14:13 | XRR_ITS ---
PROCEDURE INFORMATION: Exam: XR Abdomen Exam date and time: 02/01/2025 2:19 PM Age: 34 years old Clinical indication: Pain and abnormal findings; Abnormal lab test; Elevated wbc; Abdominal pain; Generalized; Prior surgery; Surgery date: 6+ months; Surgery type: Laproscopy; Patient describes intestines as feeling on fire , high white blood cell count, right side pain that spread to entire abdomen starting x1 week; Additional info: Abdominal pain lower back pain TECHNIQUE: Imaging protocol: Radiologic exam of the abdomen. Views: Frontal supine view of the abdomen. 1 View. COMPARISON: US abdomen complete* [id number] 07/25/2024 11:49 AM FINDINGS: Gastrointestinal tract: Normal. No bowel dilation. Bones/joints: Unremarkable. XR/XR KUB [id number] IMPRESSION: No acute findings.
== END 2025-02-01 14:06 | disposition home or self-care (01) ==
PROVIDERS: PCP Family Medicine; Visit Provider Nurse Practitioner Family
DX: R10.9 Unspecified abdominal pain (principal); M54.50 Low back pain, unspecified
CPT/HCPCS: 74018

== ENCOUNTER 2025-03-07 09:00 | Outpatient (CLI) | payer MEDICAID, SELFPAY ==
--- NOTE | 2025-03-07 09:12 | US_ITS ---
WS: [id number] US pelv w/transvag [id number] HISTORY: VAGINAL DRYNESS/HAIR LOSS/RLQ PAIN COMPARISON: None available. Uterus: 8.1 cm x 5.5 cm x 4.5 cm. Normal size anteverted uterus. Uterus becomes retroverted on transvaginal imaging. No fibroid or mass. Endometrium: 0.4 cm. Normal. Right ovary: 3.2 cm x 2.5 cm x 2.0 cm. Normal size and vascularity, no cystic or solid masses. Dominant follicle 1.8 x 1.5 x 2.2 cm. Left ovary: Not visualized. No adnexal mass. Small amount of free fluid in the cul-de-sac. US/US pelv w/transvag [id number] IMPRESSION: 1. Normal endometrium. 2. LEFT ovary not visualized. 3. Normal RIGHT ovary.
== END 2025-03-07 09:01 | disposition home or self-care (01) ==
LOC: RAD 09:01
PROVIDERS: PCP Family Medicine; Visit Provider Nurse Practitioner Family
DX: N89.8 Other specified noninflammatory disorders of vagina (principal); L65.9 Nonscarring hair loss, unspecified; R10.31 Right lower quadrant pain
CPT/HCPCS: 76830; 76856